=== PATIENT | male | born 1945 | race Caucasian/White ===

== ENCOUNTER 2018-09-09 09:44 | Emergency (ER) | payer MEDICARE, OTHER ==
[2018-09-09] MEDS: IOHEXOL 300MG/ML 30 ML BTL (10:25)
[2018-09-09] MEDS: DIATR MEGLU/DIATRIZOATE SODIUM 30 ML SOLUTION PO (10:33)
== END 2018-09-09 11:24 | disposition home or self-care (01) ==
LOC: E/R 09:44
DX: K94.23 Gastrostomy malfunction (principal); I10 Essential (primary) hypertension; E11.9 Type 2 diabetes mellitus without complications; Z86.73 Personal history of transient ischemic attack (TIA), and cerebral infarction without residual deficits
CPT/HCPCS: 43761; 74018; 99284-25

== ENCOUNTER 2018-09-22 00:08 | Inpatient (IN) | payer MEDICARE, OTHER ==
[2018-09-22] MEDS: ALBUTEROL 0.5% (NEB) 2.5 MG/0.5 ML AMP INH (00:37)
[2018-09-22] MEDS: IPRATROPIUM (NEB) 0.5 MG/2.5 ML AMP INH (00:37)
[2018-09-22 00:54] LABS: WHITE BLOOD COUNT 14.8 10^3/ul (4.8-10.8)
[2018-09-22 00:54] LABS: ADD MAN DIFF? NO; BASOPHIL # 0.1 10^3/ul (0.0-0.1); BASOPHILS % 0.7 % (0.0-2.0); EOSINOPHILS # 0.1 10^3/ul (0.0-0.5); EOSINOPHILS % 0.4 % (0.0-7.0); HEMATOCRIT 42.6 % (42.0-52.0); HEMOGLOBIN 14.2 g/dl (14.0-18.0); LYMPHOCYTES % 13.6 % (15.0-51.0); MEAN CORPUSCULAR HGB CONC 33.3 g/dl (32.0-37.0); MEAN CORPUSCULAR VOLUME 90.1 fl (82.0-101.0); MEAN PLATELET VOLUME 11.5 fl (7.4-10.4); MONOCYTE # 0.7 10^3/ul (0.3-0.9); MONOCYTES % 4.5 % (0.0-11.0); NEUTROPHIL # 11.8 10^3/ul (1.6-7.5); NEUTROPHILS % 79.4 % (39.0-77.0); PLATELET COUNT 301 10^3/UL (140-415); RED BLOOD COUNT 4.73 10^6/ul (4.70-6.10); RED CELL DISTRIBUTION WIDTH 14.1 % (11.5-14.5)
[2018-09-22 01:14] LABS: ANION GAP 18 (5-13); BLOOD UREA NITROGEN 39 mg/dl (7-20); CALCIUM 10.5 mg/dl (8.4-10.2); CARBON DIOXIDE 24 mmol/L (21-31); CHLORIDE 97 mmol/L (97-110); CREATININE 0.93 mg/dl (0.61-1.24); GLUCOSE 254 mg/dl (70-220); INR 0.98; POTASSIUM 4.9 mmol/L (3.5-5.1); PROTIME 13.1 Sec (11.9-14.9); SODIUM 139 mmol/L (135-144)
[2018-09-22 01:15] LABS: PARTIAL THROMBOPLASTIN TIME 27.5 Sec (23.0-35.0)
[2018-09-22] MEDS: CEFEPIME 1GM/50 ML (PMX) 50 ML IVPB ×3 (01:20→21:12)
[2018-09-22] MEDS: SODIUM CHLORIDE 0.9% 1L BAG IV* (01:20)
[2018-09-22 01:25] LABS: TROPONIN-I 0.032 ng/ml (0.000-0.120)
[2018-09-22] MEDS: VANCOMYCIN 1 GM (PMX) 250 ML IVPB (01:31)
[2018-09-22] MEDS: METHYLPREDNISOLONE 125 MG INJ IV (01:31)
[2018-09-22] MEDS ORDERED: ONDANSETRON 4 MG INJ IV ×3 (02:00→08:30)
[2018-09-22] MEDS ORDERED: ACETAMINOPHEN 325 MG TAB PO (02:00)
[2018-09-22 02:18] LABS: AADO2 Arterial 95.3 mmHg (7.0-24.0); Arterial Base Excess -10.3 mmol/L (-3.0-3); Arterial Blood Gas Oxygen Sat 92.8 mmHG (95.0-100.0); Arterial COHb 0.3 % (0.0-3.0); Arterial Fraction of Oxyhgb 92.2 % (93.0-99.0); Arterial HCO3 15.8 mmol/L (22.0-26.0); Arterial MetHb 0.4 % (0.0-1.5); Arterial pCO2 35.5 mmhg (35-45); MODE NASAL CANNULA; Site Right Brachial
[2018-09-22 02:22] LABS: ADD UMIC YES; UR ASCORBIC ACID 40 mg/dL (NEGATIVE); UR BACTERIA FEW /HPF (NONE SEEN); UR BILIRUBIN (Dip) NEGATIVE (NEGATIVE); UR BLOOD (Dip) 2+ mg/dL (NEGATIVE); UR CLARITY CLOUDY (CLEAR); UR COLOR AMBER (YELLOW); UR GLUCOSE (Dip) 1+ mg/dL (NEGATIVE); UR HYALINE CAST FEW /HPF (NONE SEEN); UR KETONES (Dip) TRACE mg/dL (NEGATIVE); UR LEUKOCYTE ESTERASE (Dip) NEGATIVE Leu/ul (NEGATIVE); UR MUCUS FEW /HPF (NONE SEEN); UR NITRITE (Dip) NEGATIVE (NEGATIVE); UR RBC 92 /HPF (0-5); UR SPECIFIC GRAVITY (Dip) 1.026 (1.003-1.030); UR TOTAL PROTEIN (Dip) 1+ mg/dl (NEGATIVE); UR UROBILINOGEN (Dip) 1+ mg/dL (NEGATIVE); UR WBC 2 /HPF (0-5)
[2018-09-22 03:15] LABS: LACTIC ACID 11.4 mmol/L (0.5-2.0)
[2018-09-22] MEDS ORDERED: ALBUTEROL/IPRATROPIUM (NEB) 3 ML AMP NEB (03:30)
[2018-09-22] MEDS: IOHEXOL 100 ML (03:32)
[2018-09-22] MEDS: SOD CHLORIDE 0.9% 100 ML (03:32)
[2018-09-22] MEDS: SOD CHLORIDE 0.9% 1,000 ML IV ×4 (04:35→17:09)
[2018-09-22 05:12] LABS: LACTIC ACID 11.7 mmol/L (0.5-2.0)
[2018-09-22] MEDS ORDERED: PANTOPRAZOLE 40 MG INJ IV (06:00)
[2018-09-22] MEDS ORDERED: NORepinephrine 8MG/250 ML (PMX 250 ML (06:23)
[2018-09-22] MEDS: NORepinephrine 8MG/250 ML (PMX 250 ML IV (06:29)
[2018-09-22 06:46] LABS: D-DIMER 2398.07 ng/ml (<460)
[2018-09-22 08:55] LABS: AADO2 Arterial 132.8 mmHg (7.0-24.0); Allen Test ACCEPTAB; Arterial Blood Gas Oxygen Sat 97.7 mmHG (95.0-100.0); Arterial COHb 0.3 % (0.0-3.0); Arterial Fraction of Oxyhgb 97.1 % (93.0-99.0); Arterial HCO3 17.5 mmol/L (22.0-26.0); Arterial MetHb 0.3 % (0.0-1.5); Arterial pCO2 32.2 mmhg (35-45); MODE NASAL CANNULA; Site Right Radial
[2018-09-22] MEDS ORDERED: GLUCOSE GEL 15 GRAM TUBE PO ×2 (09:00)
[2018-09-22] MEDS: ALBUTEROL/IPRATROPIUM (NEB) 3 ML AMP HHN ×4 (09:00→21:26)
[2018-09-22] MEDS ORDERED: DEXTROSE 50% 50 ML SYRINGE IV ×2 (09:00)
[2018-09-22] MEDS ORDERED: GLUCAGON 1 MG INJ IM (09:00)
[2018-09-22] MEDS ORDERED: GLUCOSE GEL 15 GRAM TUBE BUCCAL (09:00)
[2018-09-22] MEDS: FAMOTIDINE 20 MG INJ IV ×2 (09:28→21:12)
[2018-09-22] MEDS: HEPARIN 5,000 UNIT/1 ML VIAL SC ×2 (09:31→21:15)
[2018-09-22] MEDS: VANCOMYCIN 1 GM 250 ML IVPB ×2 (11:09→22:23)
[2018-09-22] MEDS: INSULIN ASPART [NOVOLOG] 3 ML PEN SC ×5 (11:15→21:00)
[2018-09-22] MEDS ORDERED: VANCOMYCIN IV PER PHARMACY XX (14:00)
[2018-09-22] MEDS: ACCU-CHEK XX (14:52)
[2018-09-22] MEDS: ATORVASTATIN 40 MG TAB GTB (21:12)
[2018-09-22] MEDS: ZINC OXIDE 13% (DESITIN) CREAM 2 OZ TUBE TOP (21:12)
[2018-09-22] MEDS: INSULIN GLARGINE [LANTus] (100 UNITS/ML) SYG SC (21:14)
[2018-09-23] MEDS: INSULIN ASPART [NOVOLOG] 3 ML PEN SC ×6 (01:24→20:50)
[2018-09-23] MEDS: ACCU-CHEK XX (01:25)
[2018-09-23] MEDS: ALBUTEROL/IPRATROPIUM (NEB) 3 ML AMP HHN ×6 (02:55→21:08)
[2018-09-23 05:20] LABS: WHITE BLOOD COUNT 21.9 10^3/ul (4.8-10.8)
[2018-09-23 05:20] LABS: ABNORMAL IP MESSAGE 1; HEMOGLOBIN 10.1 g/dl (14.0-18.0); MEAN CORPUSCULAR HEMOGLOBIN 30.1 pg (29.0-33.0); MEAN CORPUSCULAR HGB CONC 33.7 g/dl (32.0-37.0); MEAN CORPUSCULAR VOLUME 89.3 fl (82.0-101.0); MEAN PLATELET VOLUME 11.3 fl (7.4-10.4); PLATELET COUNT 215 10^3/UL (140-415); POSITIVE DIFF @See below; RED BLOOD COUNT 3.36 10^6/ul (4.70-6.10); RED CELL DISTRIBUTION WIDTH 15.1 % (11.5-14.5)
[2018-09-23 05:37] LABS: ANION GAP 7 (5-13); BLOOD UREA NITROGEN 39 mg/dl (7-20); CALCIUM 8.7 mg/dl (8.4-10.2); CARBON DIOXIDE 23 mmol/L (21-31); CHLORIDE 111 mmol/L (97-110); CREATININE 0.79 mg/dl (0.61-1.24); GLUCOSE 111 mg/dl (70-220); POTASSIUM 4.5 mmol/L (3.5-5.1); SODIUM 141 mmol/L (135-144)
[2018-09-23 05:46] LABS: ADD MAN DIFF? YES
[2018-09-23 08:09] LABS: ANISOCYTOSIS 1+ (0-0); BAND NEUTROPHILS #M 8.9 10^3/ul (0.0-0.6); BAND NEUTROPHILS % (M) 41 % (0-4); LYMPHOCYTES #M 1.7 10^3/ul (0.8-2.9); LYMPHOCYTES % (M) 8 % (15-51); MICROCYTOSIS 1+ (0-0); MONOCYTE #M 0.2 10^3/ul (0.3-0.9); MONOCYTES % (M) 1 % (0-11); PLATELET ESTIMATE NORMAL; POIKILOCYTOSIS 1+ (0-0); POLYCHROMASIA 1+ (0-0); SEG NEUT #M 12.9 10^3/ul (1.6-7.5); SEGMENTED NEUTROPHILS (M) % 50 % (39-77); SMUDGE%M 3 % (0-0)
[2018-09-23] MEDS: FAMOTIDINE 20 MG INJ IV ×2 (08:56→20:47)
[2018-09-23] MEDS: CEFEPIME 1GM/50 ML (PMX) 50 ML IVPB ×2 (08:56→20:47)
[2018-09-23] MEDS: SOD CHLORIDE 0.9% 1,000 ML IV (08:56)
[2018-09-23] MEDS: HEPARIN 5,000 UNIT/1 ML VIAL SC ×2 (09:03→20:50)
[2018-09-23] MEDS: VANCOMYCIN 1 GM 250 ML IVPB (09:58)
[2018-09-23] MEDS: ATORVASTATIN 40 MG TAB GTB (20:47)
[2018-09-23] MEDS: INSULIN GLARGINE [LANTus] (100 UNITS/ML) SYG SC (20:50)
[2018-09-23 22:02] LABS: VANCOMYCIN,TROUGH 19.1 ug/ml (10.0-20.0)
[2018-09-23] MEDS: PHENYLephrine 20MG IN 250 ML 250 ML IV (22:40)
[2018-09-23] MEDS: DILTIAZEM 25 MG INJ IV (23:56)
[2018-09-23] MEDS: VANCOMYCIN 750 MG (PMX) 250 ML IVPB (23:58)
[2018-09-24] MEDS: SOD CHLORIDE 0.9% 1,000 ML IV ×2 (00:03→17:33)
[2018-09-24] MEDS: ALBUTEROL/IPRATROPIUM (NEB) 3 ML AMP HHN ×6 (01:00→21:00)
[2018-09-24] MEDS: DILTIAZEM-D5W 125MG/125ML DRIP 125 ML IV (01:42)
[2018-09-24] MEDS: INSULIN ASPART [NOVOLOG] 3 ML PEN SC ×6 (01:54→21:38)
[2018-09-24] MEDS: ACCU-CHEK XX (01:56)
[2018-09-24] MEDS: PHENYLephrine 20MG IN 250 ML 250 ML IV ×2 (04:47→12:49)
[2018-09-24 06:14] LABS: HEMOGLOBIN 10.2 g/dl (14.0-18.0); MEAN CORPUSCULAR HEMOGLOBIN 30.1 pg (29.0-33.0); MEAN CORPUSCULAR HGB CONC 32.9 g/dl (32.0-37.0); MEAN CORPUSCULAR VOLUME 91.4 fl (82.0-101.0); MEAN PLATELET VOLUME 11.3 fl (7.4-10.4); PLATELET COUNT 215 10^3/UL (140-415); POSITIVE DIFF @See below; RED BLOOD COUNT 3.39 10^6/ul (4.70-6.10); RED CELL DISTRIBUTION WIDTH 15.6 % (11.5-14.5)
[2018-09-24 06:14] LABS: WHITE BLOOD COUNT 20.8 10^3/ul (4.8-10.8)
[2018-09-24 06:26] LABS: ADD MAN DIFF? YES
[2018-09-24 06:50] LABS: ALANINE AMINOTRANSFERASE 32 IU/L (13-69); ALBUMIN 2.7 g/dl (3.3-4.9); ALBUMIN/GLOBULIN RATIO 0.93; ALKALINE PHOSPHATASE 125 IU/L (42-121); ANION GAP 6 (5-13); ASPARTATE AMINO TRANSFERASE 41 IU/L (15-46); BILIRUBIN,INDIRECT 0.5 mg/dl (0-1.1); BILIRUBIN,TOTAL 0.5 mg/dl (0.2-1.3); BLOOD UREA NITROGEN 32 mg/dl (7-20); CALCIUM 8.4 mg/dl (8.4-10.2); CARBON DIOXIDE 23 mmol/L (21-31); CHLORIDE 112 mmol/L (97-110); CREATININE 0.63 mg/dl (0.61-1.24); GLUCOSE 200 mg/dl (70-220); POTASSIUM 4.4 mmol/L (3.5-5.1); SODIUM 141 mmol/L (135-144); TOTAL PROTEIN 5.6 g/dl (6.1-8.1)
[2018-09-24 07:05] LABS: PROCALCITONIN 12.08 ng/mL (0.00-0.10)
[2018-09-24 08:14] LABS: ANISOCYTOSIS 2+ (0-0); BAND NEUTROPHILS % (M) 34 % (0-4); BURR CELLS 1+ (0-0); LYMPHOCYTES % (M) 5 % (15-51); MICROCYTOSIS 1+ (0-0); MONOCYTE #M 1.4 10^3/ul (0.3-0.9); MONOCYTES % (M) 7 % (0-11); PLATELET ESTIMATE NORMAL; POIKILOCYTOSIS 3+ (0-0); SEG NEUT #M 12.7 10^3/ul (1.6-7.5); SEGMENTED NEUTROPHILS (M) % 54 % (39-77); SMUDGE%M 2 % (0-0)
[2018-09-24] MEDS: FAMOTIDINE 20 MG INJ IV ×2 (09:24→21:03)
[2018-09-24] MEDS: DOXYCYCLINE 100 MG TAB GTB ×2 (09:25→21:05)
[2018-09-24] MEDS: L ACIDOPHIL/B LACTIS/B LONGUM CAPSULE PO ×2 (09:25→21:05)
[2018-09-24] MEDS: HEPARIN 5,000 UNIT/1 ML VIAL SC ×2 (09:26→21:04)
[2018-09-24] MEDS ORDERED: PHENYLephrine 20MG IN 250 ML 250 ML IV ×2 (10:30→12:30)
[2018-09-24 13:06] LABS: OCCULT BLOOD STOOL NEGATIVE (NEGATIVE)
[2018-09-24] MEDS: MEROPENEM 1 GM/50ML(PMX) 50 ML IVPB ×2 (13:13→21:45)
[2018-09-24] MEDS: INSULIN GLARGINE [LANTus] (100 UNITS/ML) SYG SC (20:09)
[2018-09-24] MEDS: ATORVASTATIN 40 MG TAB GTB (21:06)
[2018-09-25] MEDS: INSULIN ASPART [NOVOLOG] 3 ML PEN SC ×6 (01:00→20:37)
[2018-09-25] MEDS: ALBUTEROL/IPRATROPIUM (NEB) 3 ML AMP HHN ×6 (01:36→20:13)
[2018-09-25] MEDS: ACCU-CHEK XX (02:00)
[2018-09-25 05:30] LABS: HEMOGLOBIN 9.5 g/dl (14.0-18.0); MEAN CORPUSCULAR HEMOGLOBIN 29.4 pg (29.0-33.0); MEAN CORPUSCULAR HGB CONC 32.8 g/dl (32.0-37.0); MEAN CORPUSCULAR VOLUME 89.8 fl (82.0-101.0); MEAN PLATELET VOLUME 11.2 fl (7.4-10.4); PLATELET COUNT 183 10^3/UL (140-415); POSITIVE DIFF @See below; RED BLOOD COUNT 3.23 10^6/ul (4.70-6.10); RED CELL DISTRIBUTION WIDTH 15.4 % (11.5-14.5)
[2018-09-25 05:30] LABS: WHITE BLOOD COUNT 12.6 10^3/ul (4.8-10.8)
[2018-09-25] MEDS: MEROPENEM 1 GM/50ML(PMX) 50 ML IVPB ×3 (05:34→22:27)
[2018-09-25] MEDS: SOD CHLORIDE 0.9% 1,000 ML IV ×2 (05:34→07:50)
[2018-09-25 05:43] LABS: ADD MAN DIFF? YES; ALANINE AMINOTRANSFERASE 32 IU/L (13-69); ALBUMIN 2.5 g/dl (3.3-4.9); ALBUMIN/GLOBULIN RATIO 0.86; ALKALINE PHOSPHATASE 116 IU/L (42-121); ANION GAP 5 (5-13); ASPARTATE AMINO TRANSFERASE 32 IU/L (15-46); BILIRUBIN,INDIRECT 0.4 mg/dl (0-1.1); BILIRUBIN,TOTAL 0.4 mg/dl (0.2-1.3); BLOOD UREA NITROGEN 21 mg/dl (7-20); CALCIUM 8.3 mg/dl (8.4-10.2); CARBON DIOXIDE 23 mmol/L (21-31); CHLORIDE 112 mmol/L (97-110); CREATININE 0.58 mg/dl (0.61-1.24); GLUCOSE 158 mg/dl (70-220); SODIUM 140 mmol/L (135-144); TOTAL PROTEIN 5.4 g/dl (6.1-8.1)
[2018-09-25] MEDS: L ACIDOPHIL/B LACTIS/B LONGUM CAPSULE PO ×2 (09:17→20:37)
[2018-09-25] MEDS: FAMOTIDINE 20 MG INJ IV ×2 (09:17→20:37)
[2018-09-25] MEDS: DOXYCYCLINE 100 MG TAB GTB ×2 (09:17→20:37)
[2018-09-25] MEDS: HEPARIN 5,000 UNIT/1 ML VIAL SC ×2 (09:21→20:36)
[2018-09-25 09:42] LABS: BAND NEUTROPHILS #M 4.4 10^3/ul (0.0-0.6); BAND NEUTROPHILS % (M) 35 % (0-4); LYMPHOCYTES #M 1.6 10^3/ul (0.8-2.9); LYMPHOCYTES % (M) 13 % (15-51); SEG NEUT #M 6.2 10^3/ul (1.7-7.5); SEGMENTED NEUTROPHILS (M) % 45 % (39-77)
[2018-09-25 09:43] LABS: BASOPHIL #M 0.1 10^3/ul (0.0-0.0); EOSINOPHILS % (M) 1 % (0.0-7.0); MONOCYTE #M 0.6 10^3/ul (0.3-0.9); MONOCYTES % (M) 5 % (0-11); PLATELET ESTIMATE NORMAL
[2018-09-25 09:44] LABS: ANISOCYTOSIS 1+ (0-0); MICROCYTOSIS 1+ (0-0); POIKILOCYTOSIS 2+ (0-0); POLYCHROMASIA 1+ (0-0)
[2018-09-25] MEDS: BARIUM SULF 2% 450 ML BTL (BERRY SMOOTHIE) PO (10:35)
[2018-09-25] MEDS: SOD CHLORIDE 0.9% 100 ML (12:23)
[2018-09-25] MEDS: IOHEXOL 300MG/ML 150 ML BTL (12:35)
[2018-09-25] MEDS: INSULIN GLARGINE [LANTus] (100 UNITS/ML) SYG SC (20:36)
[2018-09-25] MEDS: ATORVASTATIN 40 MG TAB GTB (20:37)
[2018-09-26] MEDS: INSULIN ASPART [NOVOLOG] 3 ML PEN SC ×6 (01:00→20:11)
[2018-09-26] MEDS: ACCU-CHEK XX (01:33)
[2018-09-26] MEDS: ALBUTEROL/IPRATROPIUM (NEB) 3 ML AMP HHN ×5 (01:56→23:45)
[2018-09-26 04:58] LABS: ADD MAN DIFF? NO
[2018-09-26 05:10] LABS: BASOPHILS % 0.5 % (0.0-2.0); EOSINOPHILS # 0.2 10^3/ul (0.0-0.5); EOSINOPHILS % 2.2 % (0.0-7.0); HEMATOCRIT 27.3 % (42.0-52.0); HEMOGLOBIN 9.3 g/dl (14.0-18.0); LYMPHOCYTES # 1.1 10^3/ul (0.8-2.9); MEAN CORPUSCULAR HEMOGLOBIN 30.1 pg (29.0-33.0); MEAN CORPUSCULAR HGB CONC 34.1 g/dl (32.0-37.0); MEAN CORPUSCULAR VOLUME 88.3 fl (82.0-101.0); MEAN PLATELET VOLUME 10.4 fl (7.4-10.4); MONOCYTE # 0.7 10^3/ul (0.3-0.9); MONOCYTES % 8.8 % (0.0-11.0); NEUTROPHIL # 5.3 10^3/ul (1.6-7.5); PLATELET COUNT 175 10^3/UL (140-415); RED BLOOD COUNT 3.09 10^6/ul (4.70-6.10); RED CELL DISTRIBUTION WIDTH 14.8 % (11.5-14.5)
[2018-09-26 05:10] LABS: WHITE BLOOD COUNT 7.4 10^3/ul (4.8-10.8)
[2018-09-26 05:31] LABS: ANION GAP 4 (5-13); BLOOD UREA NITROGEN 13 mg/dl (7-20); CALCIUM 8.1 mg/dl (8.4-10.2); CARBON DIOXIDE 24 mmol/L (21-31); CHLORIDE 110 mmol/L (97-110); CREATININE 0.43 mg/dl (0.61-1.24); GLUCOSE 91 mg/dl (70-220); POTASSIUM 3.8 mmol/L (3.5-5.1); SODIUM 138 mmol/L (135-144)
[2018-09-26] MEDS: MEROPENEM 1 GM/50ML(PMX) 50 ML IVPB ×3 (05:39→22:03)
[2018-09-26] MEDS: L ACIDOPHIL/B LACTIS/B LONGUM CAPSULE PO ×2 (08:45→20:07)
[2018-09-26] MEDS: DOXYCYCLINE 100 MG TAB GTB ×2 (08:45→20:07)
[2018-09-26] MEDS: HEPARIN 5,000 UNIT/1 ML VIAL SC ×2 (08:46→20:10)
[2018-09-26] MEDS: FAMOTIDINE 20 MG INJ IV ×2 (08:50→20:07)
[2018-09-26 12:48] LABS: PROCALCITONIN 3.09 ng/mL (0.00-0.10)
[2018-09-26 19:42] LABS: NIL 0.02 IU/mL; QUANTIFERON(R)-TB GOLD NEGATIVE (NEGATIVE)
[2018-09-26] MEDS: ATORVASTATIN 40 MG TAB GTB (20:07)
[2018-09-26] MEDS: INSULIN GLARGINE [LANTus] (100 UNITS/ML) SYG SC (20:10)
[2018-09-27] MEDS: INSULIN ASPART [NOVOLOG] 3 ML PEN SC ×6 (01:00→21:45)
[2018-09-27] MEDS: ACCU-CHEK XX (01:21)
[2018-09-27] MEDS: MEROPENEM 1 GM/50ML(PMX) 50 ML IVPB ×3 (05:06→21:37)
[2018-09-27 05:15] LABS: ADD MAN DIFF? NO
[2018-09-27 05:21] LABS: WHITE BLOOD COUNT 7.1 10^3/ul (4.8-10.8)
[2018-09-27 05:21] LABS: BASOPHIL # 0.1 10^3/ul (0.0-0.1); BASOPHILS % 0.8 % (0.0-2.0); EOSINOPHILS # 0.2 10^3/ul (0.0-0.5); EOSINOPHILS % 2.3 % (0.0-7.0); HEMATOCRIT 29.5 % (42.0-52.0); HEMOGLOBIN 9.8 g/dl (14.0-18.0); LYMPHOCYTES # 1.1 10^3/ul (0.8-2.9); LYMPHOCYTES % 15.4 % (15.0-51.0); MEAN CORPUSCULAR HEMOGLOBIN 29.3 pg (29.0-33.0); MEAN CORPUSCULAR HGB CONC 33.2 g/dl (32.0-37.0); MEAN CORPUSCULAR VOLUME 88.1 fl (82.0-101.0); MEAN PLATELET VOLUME 10.6 fl (7.4-10.4); MONOCYTE # 0.6 10^3/ul (0.3-0.9); MONOCYTES % 8.9 % (0.0-11.0); NEUTROPHIL # 4.8 10^3/ul (1.6-7.5); NEUTROPHILS % 68.4 % (39.0-77.0); NUCLEATED RED BLOOD CELLS% 0.3 /100WBC (0.0-0.0); PLATELET COUNT 191 10^3/UL (140-415); RED BLOOD COUNT 3.35 10^6/ul (4.70-6.10); RED CELL DISTRIBUTION WIDTH 14.7 % (11.5-14.5)
[2018-09-27 05:46] LABS: ANION GAP 6 (5-13); BLOOD UREA NITROGEN 11 mg/dl (7-20); CALCIUM 8.4 mg/dl (8.4-10.2); CARBON DIOXIDE 25 mmol/L (21-31); CHLORIDE 107 mmol/L (97-110); CREATININE 0.47 mg/dl (0.61-1.24); GLUCOSE 113 mg/dl (70-220); POTASSIUM 3.9 mmol/L (3.5-5.1); SODIUM 138 mmol/L (135-144)
[2018-09-27] MEDS: ALBUTEROL/IPRATROPIUM (NEB) 3 ML AMP HHN ×3 (09:34→23:39)
[2018-09-27] MEDS: L ACIDOPHIL/B LACTIS/B LONGUM CAPSULE PO ×2 (09:47→21:38)
[2018-09-27] MEDS: DOXYCYCLINE 100 MG TAB GTB ×2 (09:47→23:24)
[2018-09-27] MEDS: HEPARIN 5,000 UNIT/1 ML VIAL SC ×2 (09:49→21:43)
[2018-09-27] MEDS: FAMOTIDINE 20 MG INJ IV (09:51)
[2018-09-27] MEDS: POTASSIUM CHLORIDE 20 MEQ POWDER FOR ORAL SOLN PO (12:01)
[2018-09-27] MEDS: FAMOTIDINE 20 MG TAB GTB (21:38)
[2018-09-27] MEDS: ATORVASTATIN 40 MG TAB GTB (21:38)
[2018-09-27] MEDS: INSULIN GLARGINE [LANTus] (100 UNITS/ML) SYG SC (21:46)
[2018-09-27] MEDS: ACETAMINOPHEN 650MG/20.3ML CUP PO (21:52)
[2018-09-27] MEDS: CHOLESTYRAMINE (LIGHT) 4 GM PACKET PO (23:24)
[2018-09-28] MEDS: INSULIN ASPART [NOVOLOG] 3 ML PEN SC ×6 (01:56→21:13)
[2018-09-28] MEDS: ACCU-CHEK XX (02:00)
[2018-09-28 05:32] LABS: WHITE BLOOD COUNT 6.5 10^3/ul (4.8-10.8)
[2018-09-28 05:32] LABS: ABNORMAL IP MESSAGE 1; HEMATOCRIT 29.4 % (42.0-52.0); HEMOGLOBIN 9.8 g/dl (14.0-18.0); MEAN CORPUSCULAR HEMOGLOBIN 29.4 pg (29.0-33.0); MEAN CORPUSCULAR HGB CONC 33.3 g/dl (32.0-37.0); MEAN CORPUSCULAR VOLUME 88.3 fl (82.0-101.0); MEAN PLATELET VOLUME 9.6 fl (7.4-10.4); PLATELET COUNT 232 10^3/UL (140-415); POSITIVE DIFF @See below; RED BLOOD COUNT 3.33 10^6/ul (4.70-6.10); RED CELL DISTRIBUTION WIDTH 14.8 % (11.5-14.5)
[2018-09-28] MEDS: MEROPENEM 1 GM/50ML(PMX) 50 ML IVPB ×3 (05:36→22:33)
[2018-09-28 05:49] LABS: ADD MAN DIFF? YES
[2018-09-28 05:54] LABS: ANION GAP 5 (5-13); BLOOD UREA NITROGEN 13 mg/dl (7-20); CALCIUM 8.6 mg/dl (8.4-10.2); CARBON DIOXIDE 25 mmol/L (21-31); CHLORIDE 107 mmol/L (97-110); CREATININE 0.45 mg/dl (0.61-1.24); GLUCOSE 144 mg/dl (70-220); POTASSIUM 4.5 mmol/L (3.5-5.1); SODIUM 137 mmol/L (135-144)
[2018-09-28 07:25] LABS: ANISOCYTOSIS 1+ (0-0); BAND NEUTROPHILS #M 0.7 10^3/ul (0.0-0.6); BAND NEUTROPHILS % (M) 11 % (0-4); EOSINOPHILS % (M) 2 % (0-7); GIANT THROMBO% (M) 1 % (0-0); LYMPHOCYTES #M 1.3 10^3/ul (0.8-2.9); LYMPHOCYTES % (M) 20 % (15-51); MICROCYTOSIS 1+ (0-0); MONOCYTE #M 0.6 10^3/ul (0.3-0.9); MONOCYTES % (M) 10 % (0-11); MYELOCYTES % (M) 1 % (0-0); PLATELET ESTIMATE NORMAL; POIKILOCYTOSIS 2+ (0-0); REACTIVE LYMPHOCYTES #M 0.1 10^3/ul (0.0-0.0); REACTIVE LYMPHOCYTES% (M) 2 % (0-0); SEG NEUT #M 3.6 10^3/ul (1.6-7.5); SEGMENTED NEUTROPHILS (M) % 54 % (39-77); SMUDGE%M 18 % (0-0)
[2018-09-28] MEDS: ALBUTEROL/IPRATROPIUM (NEB) 3 ML AMP HHN ×3 (09:25→23:46)
[2018-09-28] MEDS: ACETAMINOPHEN 650MG/20.3ML CUP PO (10:47)
[2018-09-28] MEDS: FAMOTIDINE 20 MG TAB GTB ×2 (10:47→20:50)
[2018-09-28] MEDS: L ACIDOPHIL/B LACTIS/B LONGUM CAPSULE PO ×2 (10:47→20:50)
[2018-09-28] MEDS: DOXYCYCLINE 100 MG TAB GTB ×2 (10:47→20:50)
[2018-09-28] MEDS: CHOLESTYRAMINE (LIGHT) 4 GM PACKET PO (10:47)
[2018-09-28] MEDS: HEPARIN 5,000 UNIT/1 ML VIAL SC ×2 (10:49→20:53)
[2018-09-28 11:29] LABS: PROCALCITONIN 1.17 ng/mL (0.00-0.10)
[2018-09-28] MEDS: ATORVASTATIN 40 MG TAB GTB (20:50)
[2018-09-28] MEDS: INSULIN GLARGINE [LANTus] (100 UNITS/ML) SYG SC (20:53)
[2018-09-29] MEDS: INSULIN ASPART [NOVOLOG] 3 ML PEN SC ×6 (01:00→20:54)
[2018-09-29] MEDS: ACCU-CHEK XX (02:00)
[2018-09-29] MEDS: CHOLESTYRAMINE (LIGHT) 4 GM PACKET PO ×3 (02:01→22:15)
[2018-09-29] MEDS: MEROPENEM 1 GM/50ML(PMX) 50 ML IVPB ×3 (05:29→22:13)
[2018-09-29] MEDS: ALBUTEROL/IPRATROPIUM (NEB) 3 ML AMP HHN ×2 (08:18→16:32)
[2018-09-29] MEDS: FAMOTIDINE 20 MG TAB GTB ×2 (09:37→20:51)
[2018-09-29] MEDS: DOXYCYCLINE 100 MG TAB GTB ×2 (09:37→20:51)
[2018-09-29] MEDS: L ACIDOPHIL/B LACTIS/B LONGUM CAPSULE PO ×2 (09:37→20:51)
[2018-09-29] MEDS: HEPARIN 5,000 UNIT/1 ML VIAL SC ×2 (10:40→20:52)
[2018-09-29] MEDS: ATORVASTATIN 40 MG TAB GTB (20:51)
[2018-09-29] MEDS: INSULIN GLARGINE [LANTus] (100 UNITS/ML) SYG SC (20:53)
[2018-09-30] MEDS: ALBUTEROL/IPRATROPIUM (NEB) 3 ML AMP HHN ×3 (00:37→15:35)
[2018-09-30] MEDS: INSULIN ASPART [NOVOLOG] 3 ML PEN SC ×6 (01:00→20:23)
[2018-09-30] MEDS: ACCU-CHEK XX (02:00)
[2018-09-30] MEDS: MEROPENEM 1 GM/50ML(PMX) 50 ML IVPB ×3 (05:09→22:18)
[2018-09-30] MEDS: FAMOTIDINE 20 MG TAB GTB ×2 (08:26→20:20)
[2018-09-30] MEDS: DOXYCYCLINE 100 MG TAB GTB ×2 (08:26→20:20)
[2018-09-30] MEDS: L ACIDOPHIL/B LACTIS/B LONGUM CAPSULE PO ×2 (08:26→20:20)
[2018-09-30] MEDS: HEPARIN 5,000 UNIT/1 ML VIAL SC ×2 (08:28→20:23)
[2018-09-30] MEDS: CHOLESTYRAMINE (LIGHT) 4 GM PACKET PO ×2 (12:25→22:18)
[2018-09-30] MEDS: ATORVASTATIN 40 MG TAB GTB (20:20)
[2018-09-30] MEDS: INSULIN GLARGINE [LANTus] (100 UNITS/ML) SYG SC (20:22)
[2018-10-01] MEDS: ALBUTEROL/IPRATROPIUM (NEB) 3 ML AMP HHN ×5 (00:14→23:38)
[2018-10-01] MEDS: INSULIN ASPART [NOVOLOG] 3 ML PEN SC ×5 (01:09→18:00)
[2018-10-01] MEDS: ACCU-CHEK XX (01:13)
[2018-10-01] MEDS: MEROPENEM 1 GM/50ML(PMX) 50 ML IVPB ×3 (05:40→21:23)
[2018-10-01] MEDS: FAMOTIDINE 20 MG TAB GTB ×2 (09:11→20:47)
[2018-10-01] MEDS: HEPARIN 5,000 UNIT/1 ML VIAL SC ×2 (09:11→20:54)
[2018-10-01] MEDS: L ACIDOPHIL/B LACTIS/B LONGUM CAPSULE PO ×2 (09:11→20:47)
[2018-10-01] MEDS: DOXYCYCLINE 100 MG TAB GTB ×2 (09:11→20:47)
[2018-10-01 12:02] LABS: PROCALCITONIN 0.35 ng/mL (0.00-0.10)
[2018-10-01] MEDS: CHOLESTYRAMINE (LIGHT) 4 GM PACKET PO (13:33)
[2018-10-01] MEDS: ATORVASTATIN 40 MG TAB GTB (20:47)
[2018-10-01] MEDS: INSULIN GLARGINE [LANTus] (100 UNITS/ML) SYG SC (20:53)
[2018-10-02] MEDS: CHOLESTYRAMINE (LIGHT) 4 GM PACKET PO ×2 (01:03→13:04)
[2018-10-02] MEDS: ACCU-CHEK XX (02:00)
[2018-10-02] MEDS: MEROPENEM 1 GM/50ML(PMX) 50 ML IVPB (05:47)
[2018-10-02] MEDS: INSULIN ASPART [NOVOLOG] 3 ML PEN SC ×4 (05:50→18:00)
[2018-10-02] MEDS: ALBUTEROL/IPRATROPIUM (NEB) 3 ML AMP HHN ×2 (07:30→16:45)
[2018-10-02] MEDS: FAMOTIDINE 20 MG TAB GTB ×2 (09:55→20:59)
[2018-10-02] MEDS: L ACIDOPHIL/B LACTIS/B LONGUM CAPSULE PO ×2 (09:55→20:59)
[2018-10-02] MEDS: HEPARIN 5,000 UNIT/1 ML VIAL SC ×2 (10:00→21:10)
[2018-10-02] MEDS: ATORVASTATIN 40 MG TAB GTB (20:59)
[2018-10-02] MEDS: INSULIN GLARGINE [LANTus] (100 UNITS/ML) SYG SC (21:11)
[2018-10-03] MEDS: CHOLESTYRAMINE (LIGHT) 4 GM PACKET PO ×2 (00:02→11:41)
[2018-10-03] MEDS: INSULIN ASPART [NOVOLOG] 3 ML PEN SC ×4 (00:19→17:58)
[2018-10-03] MEDS: ACCU-CHEK XX (00:28)
[2018-10-03] MEDS: ALBUTEROL/IPRATROPIUM (NEB) 3 ML AMP HHN ×3 (00:42→16:00)
[2018-10-03] MEDS: L ACIDOPHIL/B LACTIS/B LONGUM CAPSULE PO (08:44)
[2018-10-03] MEDS: FAMOTIDINE 20 MG TAB GTB (08:44)
[2018-10-03] MEDS: ZINC OXIDE 13% (DESITIN) CREAM 2 OZ TUBE TOP (08:44)
[2018-10-03] MEDS: HEPARIN 5,000 UNIT/1 ML VIAL SC (08:56)
== END 2018-10-03 17:55 | DRG 871 ==
LOC: 2NE 09-27 17:50 → E/R 00:08 → ICU 01:35
PROVIDERS: Internal Medicine
PROC: 3E0F7GC Introduction of Other Therapeutic Substance into Respiratory Tract, Via Natural or Artificial Opening (ICD-10-PCS; principal; 2018-09-22)
DX: A41.9 Sepsis, unspecified organism (principal); R65.21 Severe sepsis with septic shock; J96.91 Respiratory failure, unspecified with hypoxia; I69.351 Hemiplegia and hemiparesis following cerebral infarction affecting right dominant side; R19.7 Diarrhea, unspecified; E11.9 Type 2 diabetes mellitus without complications; R13.10 Dysphagia, unspecified; I48.0 Paroxysmal atrial fibrillation; I10 Essential (primary) hypertension; F03.90 Unspecified dementia, unspecified severity, without behavioral disturbance, psychotic disturbance, mood disturbance, and anxiety; K62.89 Other specified diseases of anus and rectum; Z93.1 Gastrostomy status
CPT/HCPCS: 36415; 36600; 71045; 71275; 74177; 76705; 80048; 80053; 80202; 81001; 82270; 82803; 82962; 83605; 84145; 84484; 85025; 85378; 85610; 85730; 86480; 87040-91; 87045; 87075; 87081; 87086; 87177; 92610; 93005; 93306; 94640; 94644; 94664; 96374; 96375; 99285-25